=== PATIENT | male | born 2000 | race Caucasian/White ===

== ENCOUNTER 2023-02-11 10:45 | Emergency (ER) | payer BC, SELFPAY ==
--- NOTE | ~2023-02-11 | XR_ITS ---
XR chest 2V DATE: 02/11/2023 11:40 INDICATION: Shortness of breath. Lightheadedness. Asthma history. TECHNIQUE: PA and lateral views COMPARISON: None FINDINGS: Normal heart size. No hilar or mediastinal enlargement. No pulmonary infiltrate or consolid ation, pleural effusion or pulmonary vascular congestion or pneumothorax. Minimal thoracic dextroscoliosis and minimal degenerative spurring IMPRESSION: No active cardiopulmonary disease Reviewed, dictated and finalized at location B.
[2023-02-11 10:48] VITALS: BP 134/95; PULSE 83; RESP 24; TEMP 36.6; O2SAT 100
[2023-02-11 11:01] VITALS: BP 126/80; BP 135/90; PULSE 74; PULSE 83
[2023-02-11 11:03] VITALS: BP 137/92; PULSE 103
--- NOTE | 2023-02-11 11:07 | ECG_ITS ---
Measurements Intervals [place] Rate: 68 P: 50 VT: 135 QRS: -5 QRSD: 109 T: 11 QT: 373 QTc: 398 Interpretive Statements SINUS RHYTHM DELAYED PRECORDIAL R/S TRANSITION BASELINE ARTIFACT- I, II, III, AVR, AVL, AVF, V1 BORDERLINE ECG NO PREVIOUS ECG AVAILABLE FOR COMPARISON Electronically Signed On 02-11-2023 14:03:23 CDT by Aldo Velázquez D.O.
[2023-02-11 11:43] LABS: Basophils Absolute Auto 0.1 K/mm3 (0.0-0.1); Basophils Percent Auto 0.7 % (0.2-1.2); Eosinophils Absolute Auto 0.2 K/mm3 (0-0.3); Eosinophils Percent Auto 2.1 % (0-4.4); Hematocrit 45.7 % (42.0-52.0); Hemoglobin 15.5 g/dL (14.0-18.0); Immature Granulocyte Absolute 0.03 K/mm3 (0.00-0.031); Immature Granulocyte Percent A 0.3 % (0-0.5); Lymphocytes Absolute Auto 1.65 K/mm3 (0.9-3.2); Lymphocytes Percent Auto 15.4 % (18.3-44.2); Mean Corpuscular HGB Conc 33.9 g/dl (32-36); Mean Corpuscular Hemoglobin 28.6 pg (26-34); Mean Corpuscular Volume 84.3 fl (80-100); Monocytes Percent Auto 8.9 % (2.6-8.5); Neutrophils Absolute Auto 7.8 K/mm3 (1.3-6.7); Neutrophils Percent Auto 72.6 % (45.5-73.1); Platelet Count Result 256 k/mm3 (150-375); Red Blood Count 5.42 M/mm3 (4.6-6.20); Red Cell Distribution Width 12.1 % (11.5-14.5); White Blood Count 10.7 K/mm3 (4.5-10.0)
[2023-02-11 11:48] LABS: Alanine Aminotransferase 26 U/L (6-50); Albumin Level 4.5 g/dL (3.5-5.1); Alkaline Phosphatase 69 U/L (38-126); Anion Gap 10 mmol/L (8-16); Aspartate Amino Transferase 21 U/L (17-59); Bilirubin,Total 0.9 mg/dL (0.2-1.3); Blood Urea Nitrogen 12 mg/dL (9-20); Calcium 9.2 mg/dL (8.4-10.2); Carbon Dioxide 25 mmol/L (22-30); Chloride 103 mmol/L (98-107); Estimated Glomerular Filt Rate > 60; Glucose 111 mg/dL (65-110); Potassium 3.8 mmol/L (3.4-5.0); Sodium 138 mmol/L (137-145)
[2023-02-11] MEDS: SODIUM CHLORIDE 0.9% IV 1,000 ML 999 ML IV CONT (12:18)
[2023-02-11 12:50] VITALS: BP 108/73; PULSE 81; RESP 19; O2SAT 98
--- NOTE | 2023-02-11 12:55 | ED.GENADULT ---
HPI - General Adult General Chief complaint: Asthma Stated complaint: difficulty breathing Time Seen by Provider: 02/11/23 10:51 History of Present Illness HPI narrative: Patient is a 23-year-old male who presents ER with lightheadedness and shortness of breath. Reports he was at [employer] going to the bathroom and began to feel lightheaded. Symptoms persisted and worsened. He started feel fatigued and had some stars. Patient felt like he could not breathe due to this. He used his inhaler without improvement. He is also had some anxiousness related to this. He developed some tingling in his arms and legs. Still feeling short of breath. No audible wheezes. Patient has also recently had the flu which she just got over. He has been having sinus congestion with postnasal drip that causes him to have a coarse cough at night and in the early mornings. Related Data Allergies Allergy/AdvReac Type Severity Reaction Status Date / Time No Known Allergies Allergy Verified 02/11/23 11:45 Review of Systems Review of Systems: All systems reviewed & are unremarkable except as noted in HPI and below Constitutional: Constitutional: Denies chills, Denies fatigue and Denies fever(s) ENT: Denies nasal congestion and Denies sore throat Cardiovascular: Cardiovascular: Denies chest pain, Denies radiating jaw, neck or arm pain and Denies slow heart rate Respiratory: Respiratory: Denies cough, Reports dyspnea and Denies wheezing Gastrointestinal: Gastrointestinal: Denies abdominal pain, Denies nausea and Denies vomiting Neurologic: Reports dizziness, Reports syncope (Near), Denies headache(s), Denies focal weakness and Reports numbness PMFSH Past Medical History Medical History (Updated 02/11/23 @ 13:30 by Kareem Herrera MD) Anxiety Asthma Surgical History Surgical History (Updated 02/11/23 @ 12:58 by Kareem Herrera MD) No history of previous surgery Exam Narrative: GENERAL: Well-appearing, well-nourished, and in no acute distress. HEAD: Normocephalic, atraumatic. EYES: PERRL and EOMI. ENT: Mucous membranes moist. TMs obstructed by copious cerumen bilaterally. CHEST: Clear to auscultation. No respiratory distress. HEART: Regular rate and rhythm. Normal peripheral pulses. ABDOMEN: Soft, nontender, nondistended. EXTREMITIES: Normal range of motion. No edema. NEURO: Alert and oriented x3. PSYCH: Normal mood and affect. Course Course Emergency Course: Suspect patient experiencing some motion sickness as well as a panic attack. Ears irrigated and TMs normal. Patient feels improved. We will give some oral meclizine. Discharge home. Vital Signs Vital signs: Vital Signs Temperature 97.8 F 02/11/23 10:48 Pulse Rate 83 02/11/23 10:48 Respiratory Rate 24 H 02/11/23 10:48 Blood Pressure 134/95 H 02/11/23 10:48 Pulse Oximetry 100 02/11/23 10:48 Oxygen Delivery Room Air 02/11/23 10:48 Temperature 97.8 F 02/11/23 10:48 Pulse Rate 81 02/11/23 12:50 Respiratory Rate 19 02/11/23 12:50 Blood Pressure 108/73 02/11/23 12:50 Pulse Oximetry 98 02/11/23 12:50 Oxygen Delivery Room Air 02/11/23 10:48 Medical Decision Making Vital Signs Vital Signs: Vital Signs Temperature 97.8 F 02/11/23 10:48 Pulse Rate 83 02/11/23 10:48 Respiratory Rate 24 H 02/11/23 10:48 Blood Pressure 134/95 H 02/11/23 10:48 Pulse Oximetry 100 02/11/23 10:48 Oxygen Delivery Room Air 02/11/23 10:48 Temperature 97.8 F 02/11/23 10:48 Pulse Rate 81 02/11/23 12:50 Respiratory Rate 19 02/11/23 12:50 Blood Pressure 108/73 02/11/23 12:50 Pulse Oximetry 98 02/11/23 12:50 Oxygen Delivery Room Air 02/11/23 10:48 Lab Data 02/11/23 11:31 02/11/23 11:31 Labs: Lab Results 02/11/23 02/11/23 Range/Units 11:31 11:31 WBC 10.7 H (4.5-10.0) K/mm3 RBC 5.42 (4.6-6.20) M/mm3 Hgb 15.5 (14.0-18.0) g/dL Hct 45.7 (42.0-52
[2023-02-11] MEDS: MECLIZINE HCL 25 MG TABLET PO (13:34)
[2023-02-11 13:44] VITALS: BP 106/72; PULSE 73; RESP 17; O2SAT 100
== END 2023-02-11 13:45 | disposition home or self-care (01) ==
PROVIDERS: Emergency Provider Emergency Medicine
DX: H61.23 Impacted cerumen, bilateral (principal); R42 Dizziness and giddiness
CPT/HCPCS: 36415; 69209; 71046; 80053; 85025; 93005; 96360; 99283; A9270; J7030